=== PATIENT | male | born 1970 | race African-American/Black ===

== ENCOUNTER → 2024-06-14 | Day surgery (SDC) | payer OTHER ==
[~2024-06-14] MED LIST: GLUCAGON FOR INJ 1 MG VIAL ONE; LIDOCAINE HCL 2% LOCAL INJ 5 ML SDV VIAL INJ ONE; PHENYLEPHRINE HCL 1% 10 MG/ML VIAL ONE; PROPOFOL IV EMULSION 50 ML IV ONE; TYLENOL
[2024-06-14 14:37] VITALS: TEMP 97.6
[2024-06-14 15:20] VITALS: BP 120/98; PULSE 80; RESP 16; O2SAT 96
== END | disposition home or self-care (01) ==
LOC: OR 11:00
PROVIDERS: ATTEND Internal Medicine Gastroenterology
DX: K62.5 Hemorrhage of anus and rectum (principal); K63.5 Polyp of colon; K62.1 Rectal polyp; K64.8 Other hemorrhoids; K21.9 Gastro-esophageal reflux disease without esophagitis; F17.200 Nicotine dependence, unspecified, uncomplicated
CPT/HCPCS: 45380; 45385; 93005; J1610; J2003; J2371; J2704; 45378

== ENCOUNTER → 2024-06-14 | Outpatient (REF) | payer OTHER ==
[~2024-06-14] MED LIST changes: -GLUCAGON FOR INJ 1 MG VIAL ONE; -PHENYLEPHRINE HCL 1% 10 MG/ML VIAL ONE; +PROPOFOL IV EMULSION 10 MG/ML 20 ML VIAL ONE; -PROPOFOL IV EMULSION 50 ML IV ONE
== END ==
LOC: US 10:56
PROVIDERS: ATTEND Nurse Practitioner
DX: K62.5 Hemorrhage of anus and rectum (principal); K40.90 Unilateral inguinal hernia, without obstruction or gangrene, not specified as recurrent
CPT/HCPCS: 76700; 76856; J2003